=== PATIENT | female | born 1955 | race Caucasian/White ===

== ENCOUNTER → 2017-02-10 | Outpatient (CLI) | payer OTHER | END | disposition disaster alternative care site (69) | LOC: GRAD 12:40 | DX: C54.1 Malignant neoplasm of endometrium (principal); D51.8 Other vitamin B12 deficiency anemias; K76.0 Fatty (change of) liver, not elsewhere classified; K43.9 Ventral hernia without obstruction or gangrene; R91.1 Solitary pulmonary nodule | CPT/HCPCS: Q9967 ==